=== PATIENT | male | born 1995 | race Caucasian/White ===

== ENCOUNTER 2019-01-15 16:22 | Emergency (ER) | payer OTHER ==
[2019-01-15 16:56] LABS: BASOPHILS # (AUTO) 0.1 10^3/uL (0.0-0.1); BASOPHILS % (AUTO) 0.4 %; EOSINOPHILS # (AUTO) 0.1 10^3/uL (0.0-0.7); EOSINOPHILS % (AUTO) 0.8 %; HGB - HEMOGLOBIN 16.7 g/dL (14.0-18.0); LYMPHOCYTES % (AUTO) 12.5 %; MEAN CORPUSCULAR HGB CONC 33.8 g/dL (32.0-36.0); MEAN CORPUSCULAR VOLUME 85.9 fL (80.0-94.0); MONOCYTES # (AUTO) 0.9 10^3/uL (0.0-1.0); MONOCYTES % (AUTO) 5.4 %; NEUTROPHILS # (AUTO) 12.9 10^3/uL (1.5-6.6); NEUTROPHILS % (AUTO) 80.5 %; PLT - PLATELET COUNT 285 10^3/uL (130-450); RED BLOOD COUNT 5.75 10^6/uL (4.70-6.10); RED CELL DISTRIBUTION WIDTH 12.3 % (12.0-15.0)
[2019-01-15 17:04] LABS: ALBUMIN 5.1 g/dL (3.2-5.5); ALBUMIN/GLOBULIN RATIO 1.3 (1.0-2.2); BILIRUBIN,TOTAL 0.6 mg/dL (0.2-1.0); CALCIUM 9.9 mg/dL (8.5-10.3); CREATININE 1.1 mg/dL (0.6-1.2)
[2019-01-15] MEDS ORDERED: POTASSIUM CHLORIDE 20 MEQ TABLET PO STA (17:08)
[2019-01-15] MEDS ORDERED: ONDANSETRON 4 MG/2 ML VIAL IVP STA (17:14)
[2019-01-15] MEDS ORDERED: SODIUM CHLORIDE 0.9% 1,000 ML IV ONE (17:14)
[2019-01-15] MEDS ORDERED: HYDROmorphone 1 MG/ML CARPUJECT IVP STA (17:15)
[2019-01-15] MEDS ORDERED: MAG HYDROX/AL HYDROX/SIMETH 30 ML UDC PO STA (17:51)
--- NOTE | 2019-01-15 17:54 | ED Physician Documentation ---
PD HPI ABD PAIN - Stated complaint Stated Complaint: NAUSEA, VOMITTING, ABD PX - Chief complaint Chief Complaint: Abd Pain - History obtained from History obtained from: Patient - History of Present Illness Timing - onset: How many hours ago (2), Today Timing - duration: Hours (2) Timing - details: Abrupt onset Severity Comments: severe upper epigastric pain with radiation to R flank Quality: Cramping, Sharp Location: Epigastric Radiation: Other (RLQ), Right flank Improved by: Other (nothing) Worsened by: Other (nothing) Associated symptoms: Nausea, Vomiting. No: Fever, Hematemesis, Diarrhea, Constipation, Dysuria, Chest pain, Dizzy, Near syncope / syncope, Loss of appetite, Weight loss, Vaginal bleeding, Vaginal dc, Testicular pain Similar symptoms before: Has not had sx before Recently seen: Not recently seen - Treatment prior to arrival Treatment prior to arrival: none - Additional information Additional information: This occurred shortly after eating breakfast of pancakes and whipped cream this morning Review of Systems Ten Systems: 10 systems reviewed and negative Constitutional: denies: Fever, Chills Throat: reports: Reviewed and negative Cardiac: reports: Reviewed and negative Respiratory: reports: Reviewed and negative GI: reports: Abdominal Pain, Nausea, Vomiting. denies: Constipation, Diarrhea, Hematemesis, Bloody / black stool : denies: Dysuria, Frequency, Hesitancy, Hematuria Skin: reports: Reviewed and negative Neurologic: reports: Reviewed and negative. denies: Syncope, Headache, LOC Endocrine: reports: Reviewed and negative Immunocompromised: reports: Reviewed and negative PD PAST MEDICAL HISTORY - Past Medical History Past Medical History: No - Present Medications Home Medications: Ambulatory Orders Medication Instructions Recorded Confirmed Ondansetron Odt [Zofran] 4 mg TL Q6H PRN #10 tablet 01/15/19 - Allergies Allergies/Adverse Reactions: Allergies Allergy/AdvReac Type Severity Reaction Status Date / Time No Known Drug Allergies Allergy Verified 01/15/19 16:30 PD ED PE NORMAL - Vitals Vital signs reviewed: Yes - General General: Alert and oriented X 3, Well developed/nourished, Other (pale, diaphoretic ) - HEENT HEENT: Atraumatic, Pharynx benign - Neck Neck: Supple, no meningeal sign, No JVD - Cardiac Cardiac: RRR, No murmur, No gallop, No rub, Strong equal pulses - Respiratory Respiratory: No respiratory distress, Clear bilaterally - Abdomen Abdomen: Soft, Non tender (no tenderness diffusely ), Non distended - Male Male : Deferred - Rectal Rectal: Deferred - Derm Derm: Normal color, Warm and dry, Other (general pallor and diaphoresis ) - Extremities Extremities: No edema - Neuro Neuro: Alert and oriented X 3 Eye Opening: Spontaneous Motor: Obeys Commands Verbal: Oriented GCS Score: 15 - Psych Psych: Normal mood, Normal affect Results - Vitals Vitals: Vital Signs - 24 hr 01/15/19 01/15/19 01/15/19 16:30 17:12 18:03 Temperature 36.4 C L Heart Rate 100 84 75 Respiratory 17 18 16 Rate Blood Pressure 129/59 L 121/67 125/73 O2 Saturation 98 98 100 Oxygen O2 Source Room air - Labs Labs: Laboratory Tests 01/15/19 01/15/19 16:45 16:45 WBC 16.0 H RBC 5.75 Hgb 16.7 Hct 49.4 MCV 85.9 MCH 29.0 MCHC 33.8 RDW 12.3 Plt Count 285 MPV 11.0 Neut # (Auto) 12.9 H Lymph # (Auto) 2.0 Gordon # (Auto) 0.9 Eos # (Auto) 0.1 Baso # (Auto) 0.1 Absolute Nucleated RBC 0.00 Nucleated RBC % 0.0 Sodium 142 Potassium 3.3 L Chloride 105 Carbon Dioxide 23 Anion Gap 14.0 H BUN 16 Creatinine 1.1 Estimated GFR (MDRD) 84 L Glucose 114 H Calcium 9.9 Total Bilirubin 0.6 AST 43 H ALT 86 H Alkaline Phosphatase 50 Total Protein 9.0 H Albumin 5.1 Globulin 3.9 Albumin/Globulin Ratio 1.3 Lipase 35 Leukocytosis likely due to vomiting repeatedly Procedures - Bedside sono Bedside sono by EMP: RUQ US for gallstones - negative for gallstones, GB wall thickness of 0.28cm, no pericholecystic fluid, negative sonographic mur[place] PD MEDICAL DECISION MAKING - ED course Complexity details: reviewed results, re-evaluated patient, considered differential, d/w patient ED course: ddx- gastritis, gastroenteritis, food poisoning, cholelithiasis, cholecystitis, appendicitis, colitis 23 y/o M with hx and exam as documented, vomiting and upper abdominal pain a co uple of hours after eating breakfast. Pt initially arrived pale and diaphoretic, nauseous with epigastric tenderness but this resolved with zofran. He was also given fluids and declined any pain medicine. He improved markedly with the zofran. Admits to drinking quite a bit of alcohol yesterday which likely explains his elevated LFTs. He also has a leukocytosis that is moderate and I suspect is due to his repeat vomiting. Bedside US performed by me shows no evidence of gallbladder disease. Neg sonographic murphys. He has a benign abdomen on repeat examiantion. No RLQ tenderness, no RUQ tend erness. He is drinking fluids and no longer feels nauseous, declined a GI cocktail. Feels well enough to return home. Discussed dietary restrictions for the short term avoiding fatty greasy foods and dairy. Discussed return precautions with pt and his girlfriend who undestand and agree with plan to return if worsening or persisting pain, fever or recurrent vomiting. Departure - Departure Disposition: 01 Home, Self Care Clinical Impression: Nausea and vomiting Qualifiers: Vomiting type: unspecified Vomiting Intractability: non-intractable Qualified Code(s): R11.2 - Nausea with vomiting, unspecified Condition: Stable Record reviewed to determine appropriate education?: Yes Instructions: ED Nausea Vomiting Follow-Up: PARVIZ KIM [Primary Care Provider] - As Needed Prescriptions: Ondansetron Odt [Zofran] 4 mg TL Q6H PRN #10 tablet PRN Reason: Nausea / Vomiting Comments: Your labs and imaging results today were normal except a mild elevation of your liver function tests likely from drinking alcohol yesterday. You can take the prescribed zofran as needed for nausea and vomiting. Avoid alcohol and eat a mild diet avoiding spicy or fatty foods or dairy. Return to the ED if worsening pain, fever, or new concerning symptoms develop. Discharge Date/Time: 01/15/19 18:14
[2019-01-15] MEDS ORDERED: GI COCKTAIL 120 ML BOTTLE PO SCH (18:00)
[2019-01-15 18:26] VITALS: BP 125/73
== END 2019-01-15 18:14 | disposition home or self-care (01) ==
LOC: ED 16:22
DX: R11.2 Nausea with vomiting, unspecified (principal)
CPT/HCPCS: 36415; 80053; 83690; 85025; 96374; 99283; 99284; A9270; 81001; 81003; 87086